=== PATIENT | female | born 1965 | race Caucasian/White ===

== ENCOUNTER → 2020-11-14 | Day surgery (SDC) | payer OTHER ==
[~2020-11-14] VITALS: Ht 172.7 cm; Wt 96.2 kg
[~2020-11-14] MED LIST: ADVAIR 250-501 EACH INH; BENADRYL25 MG PO; CETIRIZINE HCL10 MG PO; CLEARLAX119 GM PO; DIAZEPAM 5MG TAB5 MG PO; DOK100 MG PO; FLONASE ALLER15.8 ML; LIPITOR 10MG TA10 MG PO; LIPITOR20 MG PO; NORVASC5 MG PO; PRILOSEC20 MG PO; SYNTHROID50 MCG PO; VENTOLIN HFA IN18 GM INH; VITAMIN D3 PO
[2020-11-14 10:57] LABS: BASOPHIL 0.6 % (0-2); EOSINOPHIL 1.7 % (0-5); HCT 40.7 % (37.0-47.0); HGB 14.1 g/dl (12.5-16.0); LYMPHOCYTE 33.4 % (15-48); MCH 31.6 pg (25.0-31.0); MCHC 34.6 g/dL (32.0-36.0); MCV 91.3 fL (78.0-100.0); MONOCYTE 7.3 % (0-12); MPV 9.5 fL (6.0-9.5); NEUTROPHIL 56.6 % (41-80); NRBC 0; PLT 257 K/uL (150-400); RBC 4.46 M/uL (4.20-5.40); RDW 13.2 % (11.5-14.0); WBC 8.2 K/uL (4.0-10.5)
[2020-11-14 15:49] LABS: BUN/CREAT RATIO (CALC) 14.5 RATIO; CREATININE 0.69 mg/dL (0.51-0.95); POTASSIUM 3.9 mmol/L (3.5-5.1)
== END | disposition home or self-care (01) ==
LOC: FAS 09:39
PROVIDERS: Anesthesiology; Oral & Maxillofacial Surgery
DX: K04.7 Periapical abscess without sinus (principal); M27.8 Other specified diseases of jaws; J45.909 Unspecified asthma, uncomplicated; E78.5 Hyperlipidemia, unspecified; I10 Essential (primary) hypertension; K21.9 Gastro-esophageal reflux disease without esophagitis; E03.9 Hypothyroidism, unspecified; F17.219 Nicotine dependence, cigarettes, with unspecified nicotine-induced disorders; Z88.2 Allergy status to sulfonamides
CPT/HCPCS: 21031; D7140; 36415; 71045; 80048; 85025; 93005; J1100; J1170; J2250; J2405; J2704; J3010; J7120

== ENCOUNTER → 2021-01-30 | Day surgery (SDC) | payer OTHER ==
[~2021-01-30] VITALS: Ht 172.7 cm; Wt 93.9 kg
[2021-01-30 11:07] LABS: BASOPHIL 0.6 % (0-2); EOSINOPHIL 1.7 % (0-5); HCT 40.8 % (37.0-47.0); HGB 14.3 g/dl (12.5-16.0); LYMPHOCYTE 38.1 % (15-48); MCH 31.6 pg (25.0-31.0); MCV 90.1 fL (78.0-100.0); MONOCYTE 6.7 % (0-12); MPV 9.7 fL (6.0-9.5); NEUTROPHIL 52.7 % (41-80); NRBC 0; PLT 261 K/uL (150-400); RBC 4.53 M/uL (4.20-5.40); RDW 13.2 % (11.5-14.0); WBC 6.6 K/uL (4.0-10.5)
[2021-01-30 11:36] LABS: BUN/CREAT RATIO (CALC) 15.2 RATIO; CREATININE 0.66 mg/dL (0.51-0.95); POTASSIUM 3.8 mmol/L (3.5-5.1)
== END | disposition home or self-care (01) ==
LOC: FAS 09:29
PROVIDERS: Anesthesiology; Oral & Maxillofacial Surgery
DX: M27.8 Other specified diseases of jaws (principal); K21.9 Gastro-esophageal reflux disease without esophagitis; J44.9 Chronic obstructive pulmonary disease, unspecified; E03.9 Hypothyroidism, unspecified; Z79.899 Other long term (current) drug therapy; Z88.1 Allergy status to other antibiotic agents; Z88.2 Allergy status to sulfonamides; Z88.8 Allergy status to other drugs, medicaments and biological substances
CPT/HCPCS: 36415; 80048; 85025; 93005; J1100; J1170; J2250; J2704; J3010; J7120